=== PATIENT | male | born 1985 | race Caucasian/White ===

== ENCOUNTER 2025-03-16 13:06 | Emergency (ER) | payer OTHER ==
[2025-03-16 13:55] VITALS: BP 106/65; PULSE 86; RESP 18; TEMP 98.4; BMI 37.1
[2025-03-16 14:29] LABS: PH,URINE 5.5 (5.0-8.0); URINE APPEARANCE CLEAR; URINE BILIRUBIN NEGATIVE (NEGATIVE); URINE COLOR YELLOW; URINE GLUCOSE (UA) NEGATIVE (NEGATIVE); URINE KETONE TRACE (NEGATIVE); URINE LEUK ESTERASE NEGATIVE (NEGATIVE); URINE NITRITE NEGATIVE (NEGATIVE); URINE PROTEIN NEGATIVE (NEGATIVE)
== END 2025-03-16 15:04 | disposition home or self-care (01) ==
LOC: JER 13:06
DX: M89.8X8 Other specified disorders of bone, other site (principal); N48.89 Other specified disorders of penis
CPT/HCPCS: 36415; 81003; 87086; 87491; 87591; 99283-25